=== PATIENT | male | born 1990 | race African-American/Black ===

== ENCOUNTER → 2021-05-09 | Emergency (ER) | payer OTHER ==
[~2021-05-09] VITALS: Ht 180.3 cm; Wt 72.6 kg
[~2021-05-09] MED LIST: ATENOLOL25 MG PO; HUMIRA40 MG/0.4 SUB-Q; TRAMADOL HCL50 MG PO; ULTRAM50 MG PO
--- NOTE | 2021-05-09 21:00 | EKG ---
[facility] [address] [facility] [place], [place] [address] Signed Sinus tachycardia Left axis deviation Abnormal ECG No previous ECGs available Confirmed by CECELIA DANIELS MD ([id number] on 05/09/2021 8:59:54 PM Electronically Signed By: CECELAI DANIELS MD 05/09/21 2100 PATIENT NAME: RUPESH ALEXIS ELIO Electrocardiogram DATE OF : 86 PHYSICIAN: CECELIA DANIELS MD REPORT #: [id number] REPORT IS CONFIDENTIAL AND NOT TO BE RELEASED WITHOUT AUTHORIZATION
== END ==
LOC: ED 10:40
DX: R16.0 Hepatomegaly, not elsewhere classified (principal); R07.89 Other chest pain; R74.8 Abnormal levels of other serum enzymes; R93.5 Abnormal findings on diagnostic imaging of other abdominal regions, including retroperitoneum; I10 Essential (primary) hypertension; Z87.891 Personal history of nicotine dependence; Z88.0 Allergy status to penicillin; Z88.5 Allergy status to narcotic agent; Z79.899 Other long term (current) drug therapy
CPT/HCPCS: 71045; 71250; 74176; 76705; 80053; 83690; 83735; 84484; 85007; 85025; 93005; 93010; 99285-25; J7030

== ENCOUNTER 2021-05-15 18:13 | Emergency (ER) | payer OTHER ==
[~2021-05-15] VITALS: Ht 180.3 cm; Wt 72.6 kg
--- OUTSIDE RECORDS SUMMARY | 2021-05-15 18:16 | XMS ---
PreManage Notification: RUPESH ALEXIS Security Seismometer Operator Events No recent Security Events currently on file CRITERIA MET - [facility] - 2 Visits in 30 Days CARE PROVIDERS There are no care providers on record at this time. Saloni has no Care Guidelines for this patient. [facility] (12 MO.) [facility] NOTE: Visits indicate total known visits. ED/[facility] VISIT TRACKING (12 MO.) 05/15/2021 18:[facility] [place] [facility] COMPLAINT: - FALL, KNEE PAIN 05/09/2021 10:[address] [facility] [place] TYPE: Emergency COMPLAINT: - CHEST PAIN DIAGNOSES: - Abnormal findings on diagnostic imaging of other abdominal regions, including retroperitoneum - Essential (primary) hypertension - Personal history of nicotine dependence - Abnormal levels of other serum enzymes - Allergy status to penicillin - Allergy status to narcotic agent - Other rodent exterminator (current) drug therapy - Hepatomegaly, not elsewhere classified - Other chest pain INPATIENT VISIT TRACKING (12 MO.) No inpatient visits to display in this time frame [id number]
== END 2021-05-15 20:50 | disposition home or self-care (01) ==
LOC: ED 18:13
DX: S81.012A Laceration without foreign body, left knee, initial encounter (principal); S81.011A Laceration without foreign body, right knee, initial encounter; W01.10XA Fall on same level from slipping, tripping and stumbling with subsequent striking against unspecified object, initial encounter; I10 Essential (primary) hypertension; Z88.0 Allergy status to penicillin; Z88.5 Allergy status to narcotic agent; Z79.899 Other long term (current) drug therapy
CPT/HCPCS: 12005; 73560; 73562; 99283-25

== ENCOUNTER 2021-11-10 20:41 | Emergency (ER) | payer OTHER ==
[~2021-11-10] VITALS: Ht 180.3 cm; Wt 56.7 kg
--- OUTSIDE RECORDS SUMMARY | 2021-11-10 20:44 | XMS ---
PreManage Notification: RUPESH ALEXIS Security Independent Sales Representative Events No recent Security Events currently on file [facility] There are no care providers on record at this time. Saloni has no Care Guidelines for this patient. Care History Medical/Surgical 05/17/[address] [facility] - PATIENT [facility] ELIG[facility], \T\middot;\T\nbsp; PLEASE REFER PATIENT TO [facility] FOR NON EMERGENT MEDICAL NEEDS. \T\middot;\T\nbsp; [facility] CAN SEE PATIENTS SAME DAY FOR APTS IF PATIENT CALLS FIRST THING IN THE MORNING. E.D. VISIT COUNT (12 MO.) 1 [facility] 3 [facility] TOTAL 4 NOTE: Visits indicate total known visits. ED/C VISIT TRACKING (12 MO.) 11/10/2021 20:42 [facility] TYPE: Emergency COMPLAINT: - WOUND CHECK 05/25/2021 20:51 [facility] Flavia [place]ST[place] TYPE: Emergency DIAGNOSES: - Solitary pulmonary nodule - Sepsis, unspecified organism - abnormal labs - Other diseases of spleen - Liver disease, unspecified - Abnormal Lab 05/15/2021 18:14 [facility] [place] TYPE: Emergency COMPLAINT: - FALL, KNEE PAIN DIAGNOSES: - Allergy status to penicillin - Other terminologist (current) drug therapy - Essential (primary) hypertension - Laceration without foreign body, right knee, initial encounter - Fall on same level from slipping, tripping and stumbling with subsequent striking against unspecified object, initial encounter - Laceration without foreign body, left knee, initial encounter - Allergy status to narcotic agent 05/09/2021 10:41 [facility] [place] TYPE: Emergency COMPLAINT: - CHEST PAIN DIAGNOSES: - Abnormal findings on diagnostic imaging of other abdominal regions, including retroperitoneum - Essential (primary) hypertension - Personal history of nicotine dependence - Abnormal levels of other serum enzymes - Allergy status to penicillin - Allergy status to narcotic agent - Other terminologist (current) drug therapy - Hepatomegaly, not elsewhere classified - Other chest pain INPATIENT VISIT TRACKING (12 MO.) 05/26/2021 13:29 Tanna Donahue [place] TYPE: Inpatient [id number]
[2021-11-10] MEDS ORDERED: OXYCODONE HCL5 MG PO (22:41)
[2021-11-10] MEDS ORDERED: EMTRICITABINE-1 EACH PO (22:42)
== END 2021-11-10 22:04 | disposition home or self-care (01) ==
LOC: ED 20:41
DX: T82.898A Other specified complication of vascular prosthetic devices, implants and grafts, initial encounter (principal); I10 Essential (primary) hypertension; Z88.0 Allergy status to penicillin; Z88.5 Allergy status to narcotic agent; Z79.899 Other long term (current) drug therapy
CPT/HCPCS: 99283

== ENCOUNTER 2022-02-11 17:52 | Emergency (ER) | payer OTHER ==
[~2022-02-11] VITALS: Ht 180.3 cm; Wt 70.3 kg
[~2022-02-11 17:52] MED LIST changes: +EMTRICITABINE-1 EACH PO; +OXYCODONE HCL5 MG PO
--- OUTSIDE RECORDS SUMMARY | 2022-02-11 18:36 | XMS ---
PreManage Notification: RUPESH ALEXIS Security In Home Tutor Events No recent Security Events currently on file CRITERIA MET - [facility] CARE PROVIDERS [facility] 11/11/2021-[facility] PHONE: [phone] Saloni has no Care Guidelines for this patient. Care History Medical/Surgical 05/17/2021 [facility] - PATIENT IS [facility] ELIGIBLE, \T\middot;\T\nbsp; PLEASE REFER PATIENT TO [facility] FOR NON EMERGENT MEDICAL NEEDS. \T\middot;\T\nbsp; [facility] CAN SEE PATIENTS SAME DAY FOR APTS IF PATIENT CALLS FIRST THING IN THE MORNING. E.D. VISIT COUNT (12 MO.) 1 [facility] 4 [facility] TOTAL 5 NOTE: Visits indicate total known visits. ED/UCC VISIT TRACKING (12 MO.) 02/11/2022 17:53 [facility] [place] TYPE: Emergency COMPLAINT: - LT ARM INJURY 11/10/2021 20:42 [facility] [place] TYPE: Emergency COMPLAINT: - WOUND CHECK DIAGNOSES: - Allergy status to narcotic agent - Essential (primary) hypertension - Allergy status to penicillin - Other director long term care (current) drug therapy - Other specified complication of vascular prosthetic devices, implants and grafts, initial encounter 05/25/2021 20:51 [facility] [place] TYPE: Emergency DIAGNOSES: - Solitary pulmonary nodule - Sepsis, unspecified organism - abnormal labs - Other diseases of spleen - Liver disease, unspecified - Abnormal Lab 05/15/2021 18:14 [facility] [place] TYPE: Emergency COMPLAINT: - FALL, KNEE PAIN DIAGNOSES: - Allergy status to penicillin - Other director long term care (current) drug therapy - Essential (primary) hypertension - Laceration without foreign body, right knee, initial encounter - Fall on same level from slipping, tripping and stumbling with subsequent striking against unspecified object, initial encounter - Laceration without foreign body, left knee, initial encounter - Allergy status to narcotic agent 05/09/2021 10:41 [facility] [place] TYPE: Emergency COMPLAINT: - CHEST PAIN DIAGNOSES: - Abnormal findings on diagnostic imaging of other abdominal regions, including retroperitoneum - Essential (primary) hypertension - Personal history of nicotine dependence - Abnormal levels of other serum enzymes - Allergy status to penicillin - Allergy status to narcotic agent - Other senior care (current) drug therapy - Hepatomegaly, not elsewhere classified - Other chest pain INPATIENT VISIT TRACKING (12 MO.) 05/26/2021 13:29 Tanna Donahue [place] TYPE: Inpatient [id number]
== END 2022-02-11 20:06 | disposition home or self-care (01) ==
LOC: ED 17:52
DX: S52.022D Displaced fracture of olecranon process without intraarticular extension of left ulna, subsequent encounter for closed fracture with routine healing (principal); I10 Essential (primary) hypertension; Z88.0 Allergy status to penicillin; Z88.5 Allergy status to narcotic agent; Z88.1 Allergy status to other antibiotic agents; Z79.899 Other long term (current) drug therapy
CPT/HCPCS: 99283

== ENCOUNTER 2022-02-17 22:29 | Emergency (ER) | payer OTHER ==
[~2022-02-17] VITALS: Ht 180.3 cm; Wt 73.5 kg
[~2022-02-17 22:29] MED LIST changes: +CETAPHIL MOISTU85 GM TOP; +CLOBETASOL TP; +FOLIC ACID1 MG PO; +LEXAPRO5 MG PO; +MEPRON750 MG/5 M PO; +MULTI VITAMIN1 EACH PO; +MYAMBUTOL400 MG PO; +MYCOBUTIN150 MG PO; +NAPROSYN500 MG PO; +NEUPOGEN300 MCG/0. INJ; +PROTONIX40 MG PO; +TENORMIN25 MG PO; +TIVICAY50 MG PO; +VALCYTE450 MG PO; +ZITHROMAX250 MG PO
--- OUTSIDE RECORDS SUMMARY | 2022-02-17 22:32 | XMS ---
PreManage Notification: RUPESH ALEXIS Security Vice Squad Police Officer Events No recent Security Events currently on file CRITERIA MET - [facility] - 2 Visits in 30 Days - [facility] CARE PROVIDERS [facility]/Center 11/11/2021-[facility] PHONE: [phone] Saloni has no Care Guidelines for this patient. Care History Medical/Surgical 05/17/2021 [facility] - PATIENT IS [facility] ELIGIBLE, \T\middot;\T\nbsp; PLEASE REFER PATIENT TO [facility] FOR NON EMERGENT MEDICAL NEEDS. \T\middot;\T\nbsp; [facility] CAN SEE PATIENTS SAME DAY FOR APTS IF PATIENT CALLS FIRST THING IN THE MORNING. E.D. VISIT COUNT (12 MO.) [address] [facility] NOTE: Visits indicate total known visits. ED/UCC VISIT TRACKING (12 MO.) 02/17/2022 22:29 [facility] [place] TYPE: Emergency COMPLAINT: - ARM INJ 02/11/2022 17:53 [facility] [place] TYPE: Emergency COMPLAINT: - LT ARM INJURY DIAGNOSES: - Displaced fracture of olecranon process without intraarticular extension of left ulna, subsequent encounter for closed fracture with routine healing - Other termite exterminator helper (current) drug therapy - Allergy status to other antibiotic agents - Allergy status to narcotic agent - Essential (primary) hypertension - Allergy status to penicillin 11/10/2021 20:42 [facility] TYPE: Emergency COMPLAINT: - WOUND CHECK DIAGNOSES: - Allergy status to narcotic agent - Essential (primary) hypertension - Allergy status to penicillin - Other termite exterminator helper (current) drug therapy - Other specified complication of vascular prosthetic devices, implants and grafts, initial encounter 05/25/2021 20:51 [facility] Flavia [place] TYPE: Emergency DIAGNOSES: - Solitary pulmonary nodule - Sepsis, unspecified organism - abnormal labs - Other diseases of spleen - Liver disease, unspecified - Abnormal Lab 05/15/2021 18:14 [facility] [place] TYPE: Emergency COMPLAINT: - FALL, KNEE PAIN DIAGNOSES: - Allergy status to penicillin - Other retirement (current) drug therapy - Essential (primary) hypertension [...] Allergy status to narcotic agent - Other retirement (current) drug therapy - Hepatomegaly, not elsewhere classified - Other chest pain INPATIENT VISIT TRACKING (12 MO.) 05/26/2021 13:29 Tanna Donahue [place] TYPE: Inpatient [id number]
== END 2022-02-17 23:27 | disposition home or self-care (01) ==
LOC: ED 22:29
DX: S52.022A Displaced fracture of olecranon process without intraarticular extension of left ulna, initial encounter for closed fracture (principal); W19.XXXA Unspecified fall, initial encounter; I10 Essential (primary) hypertension; Z88.0 Allergy status to penicillin; Z88.1 Allergy status to other antibiotic agents; Z88.5 Allergy status to narcotic agent; Z79.899 Other long term (current) drug therapy
CPT/HCPCS: 29105; 99282-25

== ENCOUNTER 2022-02-18 08:20 | Day surgery (SDC) | payer OTHER ==
[~2022-02-18] VITALS: Ht 180.3 cm; Wt 73.6 kg
--- NOTE | 2022-02-18 10:47 | NUR ---
02/18/22 1047 Annmarie Acharya 1044 PATIENT ARRIVES TO PACU UNRESPONSIVE TO VERBAL STIMULI. RESP EVEN AND UNLABORED, ROOM AIR SATS >98%.
--- NOTE | 2022-02-19 07:23 | OR ---
[facility] [address] [place], [place] [address] Signed DATE OF OPERATION: 02/18/2022 SURGEON: Smith Briones MD PREOPERATIVE DIAGNOSIS: Left olecranon fracture. POSTOPERATIVE DIAGNOSIS: Left olecranon fracture. PROCEDURE PERFORMED: Closed reduction casting, left elbow. SULFATE DRIER MACHINE OPERATOR: None. ANESTHESIA: MAC. BLOOD LOSS: None. BRIEF HISTORY: Rupesh is a 31-year-old gentleman with significant HIV and AIDS. He suffered a ground level fall fracturing his elbow. He has had trouble with infections including sepsis last summer. His immune status is extremely compromised with a CD4 count of only 31. That makes him at very high risk of elective surgery for which fixation of this fracture would be considered. We discussed closed reduction and casting and once his immune status improves, then perhaps further surgical treatment. He understands and is good with the plan. Risks, benefits, and alternatives were discussed at length. This includes giving him the option to go to the [place] [facility] or other such institution where they may want to perform the operation. He declines that. DESCRIPTION OF PROCEDURE: Once consent was obtained, he was taken to the operating room. After adequate anesthesia, the C-arm was brought in. The position for the stable, was at about 40 degrees of flexion with the forearm in full supination. We then held him in that position and applied a Xeroform dressing to the skin tears posteriorly. There was no active bleeding. The arm was then wrapped in sterile waterproof cast padding and a fiberglass long-arm cast in the above positions was created. Once this was Electronically Signed By: SMITH BRIONES MD 02/19/22 0723 PATIENT NAME: RUPESH ALEXIS OPERATIVE REPORT DATE OF : 86 REPORT #: [id number] PHYSICIAN: SMITH BRIONES MD PCP: CIERRA VELASQUEZ MD REPORT IS CONFIDENTIAL AND NOT TO BE RELEASED WITHOUT AUTHORIZATION [facility] [address] [place], [place] [address] Signed accomplished, final radiograph showed the fracture to be reduced within a 0.5 cm and in good alignment. He was then awakened, taken to recovery room in satisfactory condition. All sponge, needle, and instrument counts were correct. Smith Briones MD BA/DOEL /[id number] Copies: ~ Electronically Signed By: SMITH BRIONES MD 02/19/22 0723 PATIENT NAME: RUPESH ALEXIS OPERATIVE REPORT DATE OF : 86 REPORT #: [id number] PHYSICIAN: SMITH BRIONES MD PCP: CIERRA VELASQUEZ MD REPORT IS CONFIDENTIAL AND NOT TO BE RELEASED WITHOUT AUTHORIZATION
== END 2022-02-18 11:25 | disposition home or self-care (01) ==
LOC: DS 08:20
PROVIDERS: ATTEND Specialist
PROC: 0PSLXZZ Reposition Left Ulna, External Approach (ICD-10-PCS; principal; 2022-02-18 10:15)
DX: S52.022A Displaced fracture of olecranon process without intraarticular extension of left ulna, initial encounter for closed fracture (principal); B20 Human immunodeficiency virus [HIV] disease; W18.30XA Fall on same level, unspecified, initial encounter; Z88.0 Allergy status to penicillin
CPT/HCPCS: 73070; J0690; J1885; J2001; J2250; J2704; J7121

== ENCOUNTER 2022-05-14 09:27 | Emergency (ER) | payer OTHER ==
[~2022-05-14] VITALS: Ht 152.4 cm; Wt 73.6 kg
--- NOTE | ~2022-05-14 | EKG ---
[facility] [address] [facility] [place], [place] [address] Draft EK completed, results pending confirmation PATIENT NAME: RUPESH ALEXIS ELIO Electrocardiogram DATE OF : 86 PHYSICIAN: PRELIMINARY REPORT #: [id number] REPORT IS CONFIDENTIAL AND NOT TO BE RELEASED WITHOUT AUTHORIZATION
--- OUTSIDE RECORDS SUMMARY | 2022-05-14 09:30 | XMS ---
PreManage Notification: RUPESH ALEXIS Security Concrete Pouring Supervisor Events No recent Security Events currently on file CRITERIA MET - [facility] CARE PROVIDERS [facility] 11/11/2021-[facility] PHONE: [phone] Saloni has no Care Guidelines for this patient. Care History Medical/Surgical 05/17/2021 [facility] - PATIENT IS [facility] ELIGIBLE, \T\middot;\T\nbsp; PLEASE REFER PATIENT TO [facility] FOR NON EMERGENT MEDICAL NEEDS. \T\middot;\T\nbsp; [facility] CAN SEE PATIENTS SAME DAY FOR APTS IF PATIENT CALLS FIRST THING IN THE MORNING. E.D. VISIT COUNT (12 MO.) 1 [facility] 5 [facility] TOTAL 6 NOTE: Visits indicate total known visits. ED/UCC VISIT TRACKING (12 MO.) 05/14/2022 09:28 [facility] [place] TYPE: Emergency COMPLAINT: - FACIAL SWELLING 02/17/2022 22:29 [facility] [place] TYPE: Emergency COMPLAINT: - ARM INJ DIAGNOSES: - Other fci (current) drug therapy - Displaced fracture of olecranon process without intraarticular extension of left ulna, initial encounter for closed fracture - Allergy status to penicillin - Allergy status to other antibiotic agents - Allergy status to narcotic agent - Essential (primary) hypertension - Unspecified fall, initial encounter 02/11/2022 17:53 [facility] TYPE: Emergency COMPLAINT: - LT ARM INJURY DIAGNOSES: - Displaced fracture of olecranon process without intraarticular extension of left ulna, subsequent encounter for closed fracture with routine healing - Other buttermaker continuous churn (current) drug therapy - Allergy status to other antibiotic agents - Allergy status to narcotic agent - Essential (primary) hypertension - Allergy status to penicillin 11/10/2021 20:42 [facility] TYPE: Emergency COMPLAINT: - WOUND CHECK DIAGNOSES: - Allergy status to narcotic agent - Essential (primary) hypertension - Allergy status to penicillin - Other buttermaker continuous churn (current) drug therapy - Other specified complication of vascular prosthetic devices, implants and grafts, initial encounter 05/25/2021 20:51 [facility] [place] TYPE: Emergency DIAGNOSES: - Solitary pulmonary nodule - Sepsis, unspecified organism - abnormal labs - Other diseases of spleen - Liver disease, unspecified - Abnormal Lab 05/15/2021 18:14 [facility] [place] TYPE: Emergency COMPLAINT: - FALL, KNEE PAIN DIAGNOSES: - Allergy status to penicillin - Other buttermaker continuous churn (current) drug therapy - Essential (primary) hypertension - Laceration without foreign body, right knee, initial encounter - Fall on same level from slipping, tripping and stumbling with subsequent striking against unspecified object, initial encounter - Laceration without foreign body, left knee, initial encounter - Allergy status to narcotic agent INPATIENT VISIT TRACKING (12 MO.) 05/26/2021 13:29 Tanna Donahue [place] TYPE: Inpatient [id number]
== END 2022-05-14 14:37 | disposition home or self-care (01) ==
LOC: ED 09:27
DX: R22.0 Localized swelling, mass and lump, head (principal); T49.8X5A Adverse effect of other topical agents, initial encounter; I10 Essential (primary) hypertension; Z21 Asymptomatic human immunodeficiency virus [HIV] infection status; Z88.0 Allergy status to penicillin; Z88.5 Allergy status to narcotic agent; Z88.1 Allergy status to other antibiotic agents; Z88.8 Allergy status to other drugs, medicaments and biological substances; Z79.899 Other long term (current) drug therapy; Z79.891 Long term (current) use of opiate analgesic
CPT/HCPCS: 36415; 70486; 70487; 71045; 80053; 81001; 83605; 85025; 85610; 85730; 87502; 93005; 93010; 96374; 96375; 99284-25; C9803; J1100; U0003

== ENCOUNTER 2023-04-16 14:16 | Emergency (ER) | payer OTHER ==
[~2023-04-16] VITALS: Ht 180.3 cm; Wt 63.6 kg
--- OUTSIDE RECORDS SUMMARY | ~2023-04-16 | XMS | Continuity of Care Document ---
Demographics + + + | Address | [facility] [address] | | | [place] [address] | + + + | Preferred Language | Unknown | + + + | Marital Status | Never | + + + | Yazidism Affiliation | Unknown | + + + | Race | Unknown | + + + | Ethnic Group | Not or | + + + Author + + + | Author | [facility] | + + + | Organization | [facility] | + + + | Address | [address] | | | [place] [address] | + + + | Phone | | + + + Care Team Providers + + + + | Care Medical Sales Name | Role | Phone | + + + + Unavailable | Unavailable | + + + + Unavailable | Unavailable | + + + + Unavailable | Unavailable | + + + + Allergies and Intolerances + + + + + | date | description | facility | type | + + + + + | (no date) | Headache | [facility] | (unknown) | | | | [facility] | | + + + + + | (no date) | ciprofloxacin | [facility] | (unknown) | | | | Hospital | | + + + + + | (no date) | Mild | [facility] | (unknown) | | | | Hospital | | + + + + + | (no date) | Rash | [facility] | (unknown) | | | | Hospital | | + + + + + | (no date) | loratadine | [facility] | (unknown) | | | | [facility] | | + + + + + | (no date) | amoxicillin | [facility] | (unknown) | | | | Hospital | | + + + + + Encounters No information. Functional Status No information. Immunizations + + + + | date | description | facility | + + + + | 2014-04-03 00:00 | DTaP | [facility] | + + + + Medications + + + + | date | description | facility | + + + + | 2022-05-19 00:00 | RIFABUTIN | [facility] | + + + + | 2022-05-19 00:00 | OXYCODONE HCL | [facility] | + + + + | 2022-05-19 00:00 | NAPROXEN | [facility] | + + + + | 2022-05-19 00:00 | DOLUTEGRAVIR SODIUM | [facility] | + + + + | 2022-05-19 00:00 | ATENOLOL | [facility] | + + + + | 2022-05-19 00:00 | Adalimumab | [facility] | + + + + | 2022-05-19 00:00 | ATENOLOL | [facility] | + + + + | 2022-05-19 00:00 | ATOVAQUONE | [facility] | + + + + | 2022-05-19 00:00 | AZITHROMYCIN | [facility] | + + + + | 2022-05-19 00:00 | PANTOPRAZOLE SODIUM | [facility] | + + + + | 2022-05-19 00:00 | VALGANCICLOVIR HCL | [facility] | + + + + | 2022-05-19 00:00 | FOLIC ACID | [facility] | + + + + | 2022-05-19 00:00 | ESCITALOPRAM OXALATE | [facility] | + + + + | 2022-05-19 00:00 | Emtricitabine/Tenofovir | [facility] | | | (Tdf) | | + + + + | 2022-05-19 00:00 | FILGRASTIM | [facility] | + + + + | 2013-12-17 00:00 | TRAMADOL HCL | [facility] | + + + + | 2013-08-24 00:00 | TRAMADOL HCL | [facility] | + + + + | 2022-05-19 00:00 | ETHAMBUTOL HCL | [facility] | + + + + Problems + + + + | date | description | facility | + + + + | 2021-11-10 00:00 | Central line complication | [facility] | + + + + | 2022-02-11 00:00 | Closed fracture of | [facility] | | | olecranon process of ulna | | + + + + | 2022-02-11 00:00 | Fracture of olecranon | [facility] | | | process of ulna | | + + + + | 2022-02-11 17:53 | Essential (primary) | [facility] | | | hypertension [facility] | + + + + | 2022-02-11 17:53 | Displaced fracture of | [facility] | | | olecranon process without | [facility] | | | intraarticular extension of | | | | left ulna, subsequent | | | | encounter for closed | | | | fracture with routine | | | | healing | | + + + + | 2022-02-11 17:53 | Other correction (current) | [facility] | | | drug therapy | [facility] | + + + + | 2022-02-11 17:53 | Allergy status to | [facility] | | | penicillin | [facility] | + + + + | 2022-02-11 17:53 | Allergy status to other | [facility] | | | antibiotic agents | [facility] | + + + + | 2022-02-11 17:53 | Allergy status to narcotic | [facility] | | | agent | [facility] | + + + + | 2022-02-17 00:00 | Fracture of left elbow | [facility] | + + + + | 2022-02-17 00:00 | Encounter for wound | [facility] | | | re-check | | + + + + | 2022-05-14 00:00 | Allergic reaction | [facility] | + + + + Procedures + + + + | date | description | facility | + + + + | 2022-02-18 00:00 | REPOSITION LEFT ULNA, | [facility] | | | EXTERNAL APPROACH | | + + + + | 2022-02-18 00:00 | TREAT ULNAR FRACTURE | [facility] | + + + + Results/Labs No information. Social History No information. Vital Signs + + + +---------+ | date | measurement | value | units | + + + +---------+ | 2022-02-11 00:00 | BMI | 21.6 | kg/m2 | + + + +---------+ | 2022-02-11 00:00 | BP_diastolic | 94 | mmHg | + + + +---------+ | 2022-02-11 00:00 | BP_systolic | 137 | mmHg | + + + +---------+ | 2022-02-11 00:00 | heart_rate | 78 | /min | + + + +---------+ | 2022-02-11 00:00 | height_metric | 180.34 | cm | + + + +---------+ | 2022-02-11 00:00 | height_standard | 71 | in | + + + +---------+ | 2022-02-11 00:00 | o2_saturation | 100 | % | + + + +---------+ | 2022-02-11 00:00 | respiration_rate | 16 | /min | + + + +---------+ | 2022-02-11 00:00 | temperature_metric | 36.89 | C | | | | | | + + + +---------+ | 2022-02-11 00:00 | | 98.4 | F | | | temperature_standar | | | | | d | | | + + + +---------+ | 2022-02-11 00:00 | weight_metric | 70.3 | kg | + + + +---------+ | 2022-02-11 00:00 | weight_standard | 154.98 | lb | + + + +---------+ | 2022-02-11 00:00 | weight_standard | 154.99 | lb | + + + +---------+ | 2022-02-17 00:00 | BMI | 22.6 | kg/m2 | + + + +---------+ | 2022-02-17 00:00 | BP_diastolic | 89 | mmHg | + + + +---------+ | 2022-02-17 00:00 | BP_systolic | 125 | mmHg | + + + +---------+ | 2022-02-17 00:00 | heart_rate | 67 | /min | + + + +---------+ | 2022-02-17 00:00 | height_metric | 180.34 | cm | + + + +---------+ | 2022-02-17 00:00 | height_standard | 71 | in | + + + +---------+ | 2022-02-17 00:00 | o2_saturation | 97 | % | + + + +---------+ | 2022-02-17 00:00 | respiration_rate | 18 | /min | + + + +---------+ | 2022-02-17 00:00 | temperature_metric | 37 | C | | | | | | + + + +---------+ | 2022-02-17 00:00 | | 98.6 | F | | | temperature_standar | | | | | d | | | + + + +---------+ | 2022-02-17 00:00 | weight_metric | 73.48 | kg | + + + +---------+ | 2022-02-17 00:00 | weight_metric | 73.63 | kg | + + + +---------+ | 2022-02-17 00:00 | weight_standard | 162 | lb | + + + +---------+ | 2022-02-17 00:00 | weight_standard | 162.33 | lb | + + + +---------+ | 2022-02-18 00:00 | BP_diastolic | 98 | mmHg | + + + +---------+ | 2022-02-18 00:00 | BP_systolic | 133 | mmHg | + + + +---------+ | 2022-02-18 00:00 | heart_rate | 76 | /min | + + + +---------+ | 2022-02-18 00:00 | o2_saturation | 100 | % | + + + +---------+ | 2022-02-18 00:00 | respiration_rate | 22 | /min | + + + +---------+ | 2022-02-18 00:00 | temperature_metric | 36.39 | C | | | | | | + + + +---------+ | 2022-02-18 00:00 | | 97.5 | F | | | temperature_standar | | | | | d | | | + + + +---------+ | 2022-05-14 00:00 | BMI | 31.7 | kg/m2 | + + + +---------+ | 2022-05-14 00:00 | BP_diastolic | 92 | mmHg | + + + +---------+ | 2022-05-14 00:00 | BP_systolic | 134 | mmHg | + + + +---------+ | 2022-05-14 00:00 | heart_rate | 106 | /min | + + + +---------+ | 2022-05-14 00:00 | height_metric | 152.4 | cm | + + + +---------+ | 2022-05-14 00:00 | height_standard | 60 | in | + + + +---------+ | 2022-05-14 00:00 | o2_saturation | 98 | % | + + + +---------+ | 2022-05-14 00:00 | respiration_rate | 16 | /min | + + + +---------+ | 2022-05-14 00:00 | temperature_metric | 39.39 | C | | | | | | + + + +---------+ | 2022-05-14 00:00 | | 102.9 | F | | | temperature_standar | | | | | d | | | + + + +---------+ | 2022-05-14 00:00 | weight_metric | 73.6 | kg | + + + +---------+ | 2022-05-14 00:00 | weight_standard | 162.25 | lb | + + + +---------+ | 2022-05-14 00:00 | weight_standard | 162.26 | lb | + + + +---------+"
--- OUTSIDE RECORDS SUMMARY | ~2023-04-16 | XMS | Continuity of Care Document ---
Demographics + + + | Address | [facility] [address] [facility] [address] | | | [place] [address] | + + + | Preferred Language | Unknown | + + + | Marital Status | Never | + + + | Confucianism Affiliation | Unknown | + + + | Race | Unknown | + + + | Ethnic Group | Not or | + + + Author + + + | Author | [facility] | + + + | Organization | [facility] | + + + | Address | [address] | | | [place] [address] | + + + | Phone | | + + + Care Team Providers + + + + | Care Instructional Services Librarian Name | Role | Phone | + + + + Unavailable | Unavailable | + + + + Unavailable | Unavailable | + + + + Unavailable | Unavailable | + + + + Allergies and Intolerances + + + + + | date | description | facility | type | + + + + + | (no date) | Headache | [facility] | (unknown) | | | | Hospital | | + + + + + | (no date) | ciprofloxacin | [facility] | (unknown) | | | | Hospital | | + + + + + | (no date) | Mild | [facility] | (unknown) | | | | Hospital | | + + + + + | (no date) | Rash | [facility] | (unknown) | | | | Hospital | | + + + + + | (no date) | loratadine | [facility] | (unknown) | | | | Hospital | | + + + + + | (no date) | amoxicillin | [facility] | (unknown) | | | | Hospital | | + + + + + Encounters No information. Functional Status No information. Immunizations + + + + | date | description | facility | + + + + | 2014-04-03 00:00 | DTaP | [facility] | + + + + Medications + + + + | date | description | facility | + + + + | 2022-05-19 00:00 | RIFABUTIN | [facility] | + + + + | 2022-05-19 00:00 | OXYCODONE HCL | [facility] | + + + + | 2022-05-19 00:00 | NAPROXEN | [facility] | + + + + | 2022-05-19 00:00 | DOLUTEGRAVIR SODIUM | [facility] | + + + + | 2022-05-19 00:00 | ATENOLOL | [facility] | + + + + | 2022-05-19 00:00 | Adalimumab | [facility] | + + + + | 2022-05-19 00:00 | ATENOLOL | [facility] | + + + + | 2022-05-19 00:00 | ATOVAQUONE | [facility] | + + + + | 2022-05-19 00:00 | AZITHROMYCIN | [facility] | + + + + | 2022-05-19 00:00 | PANTOPRAZOLE SODIUM | [facility] | + + + + | 2022-05-19 00:00 | VALGANCICLOVIR HCL | [facility] | + + + + | 2022-05-19 00:00 | FOLIC ACID | [facility] | + + + + | 2022-05-19 00:00 | ESCITALOPRAM OXALATE | [facility] | + + + + | 2022-05-19 00:00 | Emtricitabine/Tenofovir | [facility] | | | (Tdf) | | + + + + | 2022-05-19 00:00 | FILGRASTIM | [facility] | + + + + | 2013-12-17 00:00 | TRAMADOL HCL | [facility] | + + + + | 2013-08-24 00:00 | TRAMADOL HCL | [facility] | + + + + | 2022-05-19 00:00 | ETHAMBUTOL HCL | [facility] | + + + + Problems + + + + | date | description | facility | + + + + | 2021-11-10 00:00 | Central line complication | [facility] | + + + + | 2022-02-11 00:00 | Closed fracture of | [facility] | | | olecranon process of ulna | | + + + + | 2022-02-11 00:00 | Fracture of olecranon | [facility] | | | process of ulna | [...] + + | 2022-02-11 17:53 | Other half-way (current) | [facility] | | | [...] 00:00 | Fracture of left elbow | [facility] | + + + + | 2022-02-17 00:00 | Encounter for wound | [facility] | | | re-check | | + + + + | 2022-05-14 00:00 | Allergic reaction | [facility] | + + + + Procedures + + + + | date | description | facility | + + + + | 2022-02-18 00:00 | REPOSITION LEFT ULNA, | [facility] | | | EXTERNAL APPROACH | | + + + + | 2022-02-18 00:00 | TREAT ULNAR FRACTURE | [facility] | + + + + Results/Labs No [...]
[2023-04-16 21:45] VITALS: BP 102/58
== END 2023-04-16 21:45 | disposition short-term general hospital (02) ==
LOC: ED 14:16
DX: F10.239 Alcohol dependence with withdrawal, unspecified (principal); E87.6 Hypokalemia; A41.9 Sepsis, unspecified organism; J18.9 Pneumonia, unspecified organism; N19 Unspecified kidney failure; I10 Essential (primary) hypertension; Z21 Asymptomatic human immunodeficiency virus [HIV] infection status; Z88.0 Allergy status to penicillin; Z88.5 Allergy status to narcotic agent; Z88.1 Allergy status to other antibiotic agents; Z79.899 Other long term (current) drug therapy; Z20.822 Contact with and (suspected) exposure to COVID-19
CPT/HCPCS: 36415; 36569; 36573; 51702; 51798; 71045; 80053; 81001; 83605; 83690; 85025; 85610; 85651; 86140; 86850; 86900; 86901; 87502; 99285 25; A9270; C1751; C9803; G0480; J0456; J0696; J2405; J3411; J3480; J7030; J7060; J7121; U0002